=== PATIENT | female | born 1950 | race Caucasian/White ===

== ENCOUNTER 2023-05-25 09:34 | Outpatient (CLI) | payer MEDICARE | END 2023-05-25 09:35 | disposition home or self-care (01) | LOC: BICMAMMO 09:34 | PROVIDERS: ATTEND Nurse Practitioner Family | DX: Z12.31 Encounter for screening mammogram for malignant neoplasm of breast (principal) | CPT/HCPCS: 77063; 77067 ==

== ENCOUNTER 2024-12-21 13:48 | Outpatient (CLI) | payer MEDICARE, OTHER | END 2024-12-21 13:49 | disposition home or self-care (01) | LOC: BICMAMMO 13:48 | PROVIDERS: ATTEND Nurse Practitioner Family | DX: Z78.0 Asymptomatic menopausal state (principal); M81.0 Age-related osteoporosis without current pathological fracture | CPT/HCPCS: 77080 ==